=== PATIENT | female | born 1955 | race Caucasian/White ===

== ENCOUNTER 2019-08-23 15:42 | Emergency (ER) | payer MEDICAID ==
--- NOTE | 2019-08-23 15:49 | ER Document Report ---
ED Medical Screen (RME) - General Chief Complaint: Difficulty Swallowing Stated Complaint: DIFFICULTY SWALLOWING Time Seen by Provider: 08/23/19 15:46 Mode of Arrival: Ambulatory Information source: Patient Notes: 63-year-old female presents to ED for complaint of difficulty swallowing. She states she choked on a piece of meat yesterday at 4 PM and has been able to breathe okay and speak but she cannot swallow even her saliva. She states she has not had her medications due to not being able to swallow. She states she does have high blood pressure heart problems depression and none of her medications have been taken. Patient is alert oriented respirations regular nonlabored speaking in full sentences. She states she does smoke half pack a day but has not smoked since she choked on meat and does not drink or do drugs. I have greeted and performed a rapid initial assessment of this patient. A comprehensive ED assessment and evaluation of the patient, analysis of test resu lts and completion of medical decision making process will be conducted by an additional ED providers. - Related Data Allergies/Adverse Reactions: acetaminophen [From Percocet] Allergy (Verified 08/23/19 15:46) morphine Allergy (Verified 08/23/19 15:46) oxycodone [From Percocet] Allergy (Verified 08/23/19 15:46) povidone-iodine [From Betadine] Allergy (Verified 08/23/19 15:46) soap [From Betadine] Allergy (Verified 08/23/19 15:46) Sulfa (Sulfonamide Antibiotics) Allergy (Verified 08/23/19 15:46)
[2019-08-23] MEDS ORDERED: ONDANSETRON 4 MG TAB.RAPDIS PO ONE (16:05)
[2019-08-23] MEDS ORDERED: GLUCAGON,HUMAN RECOMB 1 MG INJ IM ONE (16:05)
[2019-08-23] MEDS ORDERED: NORMAL SALINE 1000 ML 1,000 ML IV ONE (16:07)
--- NOTE | 2019-08-23 16:14 | RADIOLOGY REPORT (SQ) ---
EXAM DESCRIPTION: SOFT TISSUE NECK COMPLETED DATE/TIME: 08/23/2019 4:00 pm REASON FOR STUDY: choked on meat yesterday COMPARISON: None. NUMBER OF VIEWS: Two views. TECHNIQUE: AP and lateral radiographic image of the soft tissues of the neck. LIMITATIONS: None. FINDINGS: EPIGLOTTIS: Normal. Contour normal. Aryepiglottic folds normal. PREVERTEBRAL SOFT TISSUES: Normal. No soft tissue swelling. SUBGLOTTIC AREA: Normal. No narrowing. RETROPHARYNGEAL SPACE: Normal. No soft tissue masses. BONES: No significant findings. LUNG APICES: Normal. OTHER: No radiopaque foreign body. No other significant finding. IMPRESSION: No radiopaque foreign body projecting over the airway. TECHNICAL DOCUMENTATION: JOB ID: [id number] 2448[employer]- All Rights Reserved Reading location - IP/workstation name: [email or web address]
--- NOTE | 2019-08-23 16:33 | ER Document Report ---
ED General - General Chief Complaint: Difficulty Swallowing Stated Complaint: DIFFICULTY SWALLOWING Time Seen by Provider: 08/23/19 15:46 Mode of Arrival: Ambulatory Notes: Patient is a 63-year-old female who presents emergency department with a chief complaint of a piece of meat stuck in her throat. She states that she was eating meat yesterday around 4 PM and felt to get stuck. She states that she was able to get a small chunk out, but still has the sensation of the meat being there. Patient has a history of cardiovascular disease with a myocardial infarction x2, hypertension, depression, and anemia. - Related Data Allergies/Adverse Reactions: acetaminophen [From Percocet] Allergy (Verified 08/23/19 15:46) metoclopramide [From Reglan] Allergy (Verified 08/23/19 16:17) Facial swelling morphine Allergy (Verified 08/23/19 15:46) oxycodone [From Percocet] Allergy (Verified 08/23/19 15:46) povidone-iodine [From Betadine] Allergy (Verified 08/23/19 15:46) soap [From Betadine] Allergy (Verified 08/23/19 15:46) Sulfa (Sulfonamide Antibiotics) Allergy (Verified 08/23/19 15:46) Past Medical History - General Information source: Patient - Social History Smoking Status: Current Every Day Smoker Chew tobacco use (# tins/day): No Frequency of alcohol use: None Family History: Reviewed & Not Pertinent Patient has suicidal ideation: No Patient has homicidal ideation: No Review of Systems - Review of Systems Notes: REVIEW OF SYSTEMS: CONSTITUTIONAL : Denies recent illness. Denies recent unintentional weight loss. Denies fever, chills, or sweats. EENT: Denies eye, ear, throat, or mouth pain, discharge, or symptoms. Denies nasal or sinus congestion. CARDIOVASCULAR: Denies chest pain. RESPIRATORY: Denies shortness of breath, cough, congestion, difficulty breathing, or wheezing. GASTROINTESTINAL: See HPI. GENITOURINARY: Denies difficulty urinating, burning, blood in urine, urgency or frequency. MUSCULOSKELETAL: Denies neck and back pain. Denies joint pain or swelling. SKIN: Denies rash, itchiness, or lesions HEMATOLOGIC : Denies easy bruising or bleeding. LYMPHATIC: Denies swollen, painful, enlarged glands. NEUROLOGICAL: Denies no numbness or tingling denies weakness. Denies headache. Denies altered mental status. Denies alteration in speech. PSYCHIATRIC: Denies stress, anxiety, alteration in sleep patterns, or dep ression. All other systems reviewed and negative. Physical Exam - Vital signs Vitals: Temp Pulse Resp BP Pulse Ox 98.0 F 104 H 20 148/100 H 97 08/23/19 15:48 08/23/19 15:48 08/23/19 15:48 08/23/19 15:48 08/23/19 15:48 - Notes Notes: PHYSICAL EXAMINATION: GENERAL: Appears well, healthy, well-nourished, no acute distress. HEAD: Normocephalic, atraumatic. EYES: PERRL, conjunctiva normal, all extraocular movements intact, sclera nonicteric ENT: Moist mucous membranes. NECK: Supple, no noticeable swelling, redness, rash. Normal range of motion. LUNGS: Equal breath sounds bilaterally and clear to auscultation. No wheezes rales or rhonchi. CARDIOVASCULAR: S1-S2, regular rate, regular rhythm. Radial pulses 2+, normal. ABDOMEN: Normoactive bowel sounds. Soft, nontender, no guarding, no rebound tenderness, and no masses palpated. EXTREMITIES: Normal strength and range of motion, no pitting or edema. No cyanosis. NEUROLOGICAL: Moves all extremities upon command. Strength 5/5 in all extremities. PSYCH: Normal mood, normal affect. SKIN: Warm, dry. No rash, lesions, ulcerations noted. Normal skin turgor. Course - Re-evaluation Re-evalutation: 08/23/19 17:[address] aCi, the surgical list regulatory submissions associate. He does not do an endoscopy. He is recommending transfer. According to the tech and CT, they were able to visualize something further down in her esophagus. I spoke with the patient and she right now is willing to try Pepsi before I try to call in another facility for endoscopy. 08/23/19 19:14 Patient still has not passed the food bolus and it is confirmed on CT. I have contacted [facility] and initiated transfer. 08/23/19 19:[address] Jimenes, the GI physician on-call for [facility]. He will have the patient transferred for an ED to ED transfer. 08/23/19 21:08 Transport team is at bedside. I have assessed the patient and she is stable for transfer to [facility]. - Vital Signs Vital signs: Temp Pulse Resp BP Pulse Ox 98.7 F 60 12 132/89 H 100 08/23/19 21:05 08/23/19 20:05 08/23/19 21:02 08/23/19 21:02 08/23/19 21:02 - Laboratory Result Diagrams: 08/23/19 16:23 08/23/19 16:23 Laboratory results interpreted by me: 08/23/19 08/23/19 16:23 16:23 WBC 13.3 H MCV 99 H MCH 33.5 H Lymph % (Auto) 8.9 L Absolute Neuts (auto) 11.2 H Seg Neutrophils % 83.7 H Glucose 129 H Calcium 10.8 H Total Protein 9.3 H Albumin 5.4 H Discharge - Discharge Clinical Impression: Esophageal obstruction due to food impaction Condition: Good Disposition: [facility] Admitting Provider: Dr. Jimenes
[2019-08-23 16:43] LABS: ABSOLUTE BASOPHILS # (AUTO) 0.1 10^3/uL (0.0-0.2); ABSOLUTE LYMPHOCYTES (AUTO) 1.2 10^3/uL (0.5-4.7); ABSOLUTE MONOCYTES (AUTO) 0.9 10^3/uL (0.1-1.4); ABSOLUTE NEUT (AUTO) 11.2 10^3/uL (1.7-8.2); BASOPHILS % (AUTO) 0.7 % (0-2); EOSINOPHILS % (AUTO) 0.1 % (0-6); HEMATOCRIT 45.4 % (36.0-47.0); HEMOGLOBIN 15.3 g/dL (12.0-15.5); LYMPHOCYTES % (AUTO) 8.9 % (13-45); MEAN CORPUSCULAR HEMOGLOBIN 33.5 pg (27.0-33.4); MEAN CORPUSCULAR HGB CONC 33.7 g/dL (32.0-36.0); MEAN CORPUSCULAR VOLUME 99 fl (80-97); MONOCYTES % (AUTO) 6.6 % (3-13); PLATELET COUNT 365 10^3/uL (150-450); RED BLOOD COUNT 4.58 10^6/uL (3.72-5.28); RED CELL DISTRIBUTION WIDTH 13.7 % (11.5-14.0); SEGMENTED NEUTROPHILS % (AUTO) 83.7 % (42-78); TOTAL CELLS COUNTED % (AUTO) 100 %; WHITE BLOOD COUNT 13.3 10^3/uL (4.0-10.5)
[2019-08-23 16:58] LABS: ALBUMIN 5.4 g/dL (3.5-5.0); ALKALINE PHOSPHATASE 106 U/L (38-126); ANION GAP 15 (5-19); ASPARTATE AMINO TRANSFERASE 36 U/L (14-36); BILIRUBIN,DIRECT 0.2 mg/dL (0.0-0.4); BILIRUBIN,TOTAL 0.7 mg/dL (0.2-1.3); BLOOD UREA NITROGEN 18 mg/dL (7-20); CALCIUM 10.8 mg/dL (8.4-10.2); CARBON DIOXIDE 26 mmol/L (22-30); CHLORIDE 98 mmol/L (98-107); GLUCOSE 129 mg/dL (75-110); POTASSIUM 4.4 mmol/L (3.6-5.0); TOTAL PROTEIN 9.3 g/dL (6.3-8.2)
[2019-08-23] MEDS ORDERED: DEXAMETHASONE SOD PHOS INJ 10 MG/1 ML VIAL IM ONE (16:59)
--- NOTE | 2019-08-23 18:43 | RADIOLOGY REPORT (SQ) ---
EXAM DESCRIPTION: CT SOFT TISSUE NECK WITH COMPLETED DATE/TIME: 08/23/2019 5:55 pm REASON FOR STUDY: eval esophageal obstruction? COMPARISON: None. TECHNIQUE: Post IV contrasted scanning from skull base through lung apices with review of bone, soft tissue and lung windows. Reconstructed coronal and sagittal MPR images reviewed. All images stored on PACS. All CT scanners at this facility use dose modulation, iterative reconstruction, and/or weight based d osing when appropriate to reduce radiation dose to as low as reasonably achievable (ALARA). [facility]: Dose Right [facility]: CareDose [facility]: Dose Right [facility]: Teradose 4D [facility]: [employer] CONTRAST TYPE AND DOSE: contrast/concentration: Isovue 350.00 mg/ml; Total Contrast Delivered: 75.0 ml; Total Saline Delivered: 55.0 ml 75 mL Isovue 350- low osmolar. RENAL FUNCTION: BUN 18, creatinine 0.9 RADIATION DOSE: CT Rad equipment meets quality standard of care and radiation dose reduction techniq ues were employed. CTDIvol: 6.0 mGy. DLP: 204 mGy-cm. . LIMITATIONS: None. FINDINGS: SKULL BASE: Intact. MAJOR SALIVARY GLANDS: No solid or cystic masses. No inflammatory changes. LYMPHADENOPATHY: No adenopathy. MUCOSAL MASSES OR ASYMMETRY: No mucosal masses or asymmetry. LARYNX/CORDS: No abnormal findings. VASCULAR STRUCTURES: The major vessels are patent. LUNG APICES: Clear. BONES: Intact. THYROID: Normal size. No masses. PARANASAL SINUSES: Clear. OTHER: Layering particulate matter filling the partially visualized mid esophagus with corresponding soft tissue wall thickening and enhancement. Mild air distention of proximal esophagus. Inflammator y stranding of paraesophageal mediastinal fat. No pneumomediastinum. IMPRESSION: Mid esophageal food bolus obstruction with corresponding findings of moderate esophageal and paraesophageal mediastinal inflammatory changes. No pneumomediastinum to suggest perforation. TECHNICAL DOCUMENTATION: JOB ID: [id number] Quality ID # [id number]: Final reports with documentation of one or more dose reduction techniques (e.g., Au tomated exposure control, adjustment of the mA and/or kV according to patient size, use of iterative reconstruction technique) 2010 [employer]- All Rights Reserved Reading location - IP/workstation name: [email or web address]
[2019-08-23] MEDS ORDERED: ONDANSETRON HCL INJ/PF 4 MG/2 ML SDV IV ONE (20:02)
[2019-08-23 21:06] VITALS: BP 132/89
== END 2019-08-23 21:15 | disposition short-term general hospital (02) ==
LOC: ER 15:42
DX: T18.128A Food in esophagus causing other injury, initial encounter (principal); R13.10 Dysphagia, unspecified; X58.XXXA Exposure to other specified factors, initial encounter; F17.200 Nicotine dependence, unspecified, uncomplicated; Z88.6 Allergy status to analgesic agent; Z88.2 Allergy status to sulfonamides
CPT/HCPCS: 99285; 96372; 96361; 96374; 36415; 85025; 80053; 70360; 70491; S0119; J1610; J2405; J7030; J1100